=== PATIENT | male | born 1960 | race Caucasian/White ===

== ENCOUNTER → 2020-12-16 | Outpatient (CLI) | payer OTHER ==
--- NOTE | 2020-12-16 21:23 | CT ---
EXAMINATION TYPE: CT chest wo con DATE OF EXAM: 12/16/2020 COMPARISON: None available. HISTORY: Personal hx nicotine dependent. Pt still smoker. Reports no issues, test dr recommended. CT DLP: 282.70 mGycm. Automated Exposure Control for Dose Reduction was Utilized. TECHNIQUE: CT scan of the thorax is performed without IV contrast. FINDINGS: LUNGS: The lungs are grossly clear, there is no concerning parenchymal mass or nodule identified. T here is no pleural effusion or pneumothorax seen. The tracheobronchial tree is patent. MEDIASTINUM: Lack of IV contrast is noted to limit evaluation for mediastinal and especially hilar ad enopathy. There are no definitive greater than 1 cm hilar or mediastinal lymph nodes. No cardiomega ly or pericardial effusion is seen. There is moderate to advanced coronary atherosclerotic disease. OTHER: No additional significant abnormality is seen. IMPRESSION: No acute cardiopulmonary abnormality. Moderate to advanced coronary atherosclerotic disease.
== END | disposition home or self-care (01) ==
LOC: RADCTMAIN 18:13
DX: I25.10 Atherosclerotic heart disease of native coronary artery without angina pectoris (principal); Z87.891 Personal history of nicotine dependence
CPT/HCPCS: 71250

== ENCOUNTER → 2022-11-15 | Outpatient (CLI) | payer OTHER ==
--- NOTE | 2022-11-15 11:16 | CTL ---
EXAMINATION TYPE: CT Low Dose Lung DATE OF EXAM ORDERED: 11/15/2022 HISTORY: . Lung cancer screening CT DLP: 97.[address] CTDI: 2.70 mGy Automated exposure control for dose reduction was used. SCREENING VISIT: COMPARISON: 12/16/2020 TECHNIQUE: Low dose computed tomography scan was performed through the chest at 1 mm thick sections a nd reconstructed images in multiple planes at 1 mm and [address] DIAGNOSTIC QUALITY: Satisfactory FINDINGS: LUNGS: The lungs are grossly clear, there is no concerning parenchymal consolidation identified. Ther e is no pleural effusion or pneumothorax seen. The tracheobronchial tree is patent. There is a subpleural nodule measuring 3 mm within the left lower lobe axial image 196. MEDIASTINUM: Lack of IV contrast is noted to limit evaluation for mediastinal and especially hilar ad enopathy. There are no definitive greater than 1 cm hilar or mediastinal lymph nodes. No cardiomegaly or pericardial effusion is seen. There is moderate to advanced coronary atherosclerotic disease. OTHER: No additional significant abnormality is seen. IMPRESSION: 1. There is a benign-appearing subpleural 3 mm nodule too small to characterize. 2 dense coronary art franci calcification. CT LUNG RAD AND CT CHEST RECOMMENDATION: Lung-Rad 2 Benign Appearance or Behavior: Continue annual sc reening with LDCT in 12 months. S Modifier (other clinically significant findings): S
== END | disposition home or self-care (01) ==
LOC: RADCTMAIN 08:18
DX: Z12.2 Encounter for screening for malignant neoplasm of respiratory organs (principal); I25.10 Atherosclerotic heart disease of native coronary artery without angina pectoris; R91.1 Solitary pulmonary nodule; Z87.891 Personal history of nicotine dependence
CPT/HCPCS: 71271